=== PATIENT | male | born 1985 | race Caucasian/White ===

== ENCOUNTER 2019-12-13 23:30 | Emergency (ER) | payer BC ==
[2019-12-13 23:39] LABS: Glucose,Whole Blood 100 mg/dL (75-99)
[2019-12-13 23:40] VITALS: RESP 18; TEMP 97.7
--- NOTE | 2019-12-14 00:32 | ED ---
Fall HPI - General Chief Complaint: Fall Stated Complaint: Fall/LOC Time Seen by Provider: 12/13/19 23:34 Source: patient, EMS Mode of arrival: EMS - History of Present Illness MD Complaint: fall -: minutes(s) Fall From: down stairs (#) When Fall Occurred: just prior to arrival Fall Witnessed: no Place Fall Occurred: home Loss of Consciousness: none Prolonged Down Time?: no Symptoms Prior to Fall: none Location: head Severity scale (1-10): 0 Context: tripped/slipped, alcohol use Associated Symptoms: denies - Related Data Allergies Allergy/AdvReac Type Severity Reaction Status Date / Time No Known Allergies Allergy Verified 12/14/19 00:36 Review of Systems ROS Statement: Those systems with pertinent positive or pertinent negative responses have been documented in the HPI. ROS Other: All systems not noted in ROS Statement are negative. Constitutional: Denies: fever Eyes: Denies: vision change Respiratory: Denies: cough, dyspnea Cardiovascular: Denies: chest pain, syncope Gastrointestinal: Denies: abdominal pain, vomiting, diarrhea Musculoskeletal: Denies: back pain Skin: Denies: rash Neurological: Denies: headache, weakness, numbness, paresthesias, confusion Hematological/Lymphatic: Denies: easy bleeding Past Medical History Past Medical History: No Reported History History of Any Multi-Drug Resistant Organisms: None Reported Past Surgical History: No Surgical Hx Reported Past Psychological History: No Psychological Hx Reported Smoking Status: Current every day smoker Past Alcohol Use History: Daily Past Drug Use History: None Reported General Exam Limitations: no limitations General appearance: alert, in no apparent distress Head exam: Present: atraumatic, normocephalic Eye exam: Present: normal appearance, PERRL, EOMI. Absent: scleral icterus, conjunctival injection, nystagmus ENT exam: Present: normal oropharynx Neck exam: Present: normal inspection. Absent: tenderness, meningismus, full ROM Respiratory exam: Present: normal lung sounds bilaterally. Absent: respiratory distress, wheezes, rales, rhonchi, stridor, chest wall tenderness Cardiovascular Exam: Present: regular rate, normal rhythm, normal heart sounds. Absent: systolic murmur, diastolic murmur, rubs, gallop GI/Abdominal exam: Present: soft. Absent: distended, tenderness, guarding, rebound, rigid, mass Extremities exam: Present: normal inspection, normal capillary refill. Absent: pedal edema, calf tenderness Back exam: Present: normal inspection. Absent: CVA tenderness (R), CVA tenderness (L), paraspinal tenderness, vertebral tenderness Neurological exam: Present: alert Skin exam: Present: warm, dry, normal color, abrasion (Linear abrasion approximately 3 inches long to the left pretibial area.) Course Vital Signs 12/13/19 12/14/19 12/14/19 23:33 00:00 00:30 Temperature 97.7 F Pulse Rate 98 85 88 Respiratory 18 18 18 Rate Blood Pressure 116/86 112/80 123/75 O2 Sat by Pulse 100 100 100 Oximetry Medical Decision Making - Medical Decision Making Findings suggestive of any major injury. He is observed in the emergency department for little over an hour without onset of any new signs or symptoms. On reevaluation, patient feels well and does request discharge. The patient's significant other is at bedside and will be with him tonight and does agree she will observe him for signs of closed head injury. He does ambulate well without any difficulty. He does tolerate oral intake. Patient affirms that his tetanus status is up to date. - Lab Data Lab Results 12/13/19 Range/Units 23:37 POC Glucose (mg/dL) 100 H (75-99) mg/dL POC Glu [employer] Pascual Beltran Disposition Clinical Impression: Fall, Head injury Disposition: HOME SELF-CARE Condition: Good Instructions (If sedation given, give patient instructions): Head Injury (ED) Is patient prescribed a controlled substance at d/c from ED?: No Referrals: None,Stated [Primary Care Provider] - 1-2 days
[2019-12-14 00:36] VITALS: BP 123/75; PULSE 88
== END 2019-12-14 00:52 | disposition home or self-care (01) ==
LOC: EC 23:30
DX: S09.90XA Unspecified injury of head, initial encounter (principal); S80.812A Abrasion, left lower leg, initial encounter; F17.200 Nicotine dependence, unspecified, uncomplicated; W10.9XXA Fall (on) (from) unspecified stairs and steps, initial encounter; Y93.89 Activity, other specified; Y92.009 Unspecified place in unspecified non-institutional (private) residence as the place of occurrence of the external cause
CPT/HCPCS: 36415; 99283